=== PATIENT | male | born 1935 | race Caucasian/White ===

== ENCOUNTER 2021-09-01 03:59 | Inpatient (IN) | payer MEDICARE, OTHER ==
[~2021-09-01] VITALS: Ht 170.2 cm; Wt 64.5 kg
[2021-09-01] MEDS ORDERED: 0.9% SODIUM CHLORIDE 10 ML SYRINGE IVP PRN (04:15)
[2021-09-01 04:35] LABS: BASOPHILS % (AUTO) 0.2 % (0.0-2.0); EOSINOPHILS % (AUTO) 0.6 % (1.0-6.0); HEMATOCRIT 33.7 % (41-53); HEMOGLOBIN 11.1 g/dL (13.5-17.5); LYMPHOCYTES # (AUTO) 0.3 K/uL (1.0-4.8); LYMPHOCYTES % (AUTO) 2.7 % (22.0-44.0); MEAN CORPUSCULAR HEMOGLOBIN 29.4 pg (26.0-34.0); MEAN CORPUSCULAR VOLUME 89 fL (80-100); MONOCYTES % (AUTO) 8.5 % (2.0-9.0); NEUTROPHILS # (AUTO) 10.4 K/uL (1.8-7.7); PLATELET COUNT (AUTO) 127 K/uL (150-450); RED BLOOD CELL COUNT(AUTO) 3.78 MIL/uL (4.50-5.90); RED CELL DISTRIBUTION WIDTH 15.3 % (11.5-14.5)
[2021-09-01 04:41] LABS: ANION GAP 9 mmol/L (8-16); CALCIUM, TOTAL 9.4 mg/dL (8.8-10.5); CARBON DIOXIDE 30 mmol/L (22-29); CHLORIDE 105 mmol/L (98-107); CREATININE 0.93 mg/dL (0.60-1.30); GLUCOSE,RANDOM 144 mg/dL (70-110); POTASSIUM 4.3 mmol/L (3.5-5.1); SODIUM SERUM 144 mmol/L (136-145); UREA NITROGEN, BLOOD 21 mg/dL (7-18)
[2021-09-01 04:42] LABS: GLOMERULAR FILTR. RATE CALC > 60 mL/min (>60)
[2021-09-01] MEDS ORDERED: TROS20TA3 PO (04:45)
[2021-09-01] MEDS ORDERED: LEVO100 PO (04:45)
[2021-09-01] MEDS ORDERED: FINA-27 PO (04:45)
[2021-09-01] MEDS ORDERED: ALBU8HFA IH (04:45)
[2021-09-01] MEDS ORDERED: ASPI-1450 PO (04:45)
[2021-09-01] MEDS ORDERED: ATOR40TA28 PO (04:45)
[2021-09-01] MEDS ORDERED: NITR0.3T12 SL (04:45)
[2021-09-01] MEDS ORDERED: MOME15CR4 TP (04:45)
[2021-09-01] MEDS ORDERED: DICL100G51 TP (04:45)
[2021-09-01] MEDS ORDERED: PANT-31 PO (04:45)
[2021-09-01] MEDS ORDERED: ACET-2247 PO (04:45)
[2021-09-01] MEDS ORDERED: CLOB60CR12 TP (04:45)
[2021-09-01] MEDS ORDERED: IBUP200C5 PO (04:45)
[2021-09-01] MEDS ORDERED: FLUT16H NASAL (04:45)
[2021-09-01] MEDS ORDERED: TIOT185 IH (04:45)
[2021-09-01 04:48] LABS: ALANINE AMINOTRANSFERASE 67 U/L (12-78); ALBUMIN 2.8 g/dL (3.4-5.0); ALKALINE PHOSPHATASE 239 U/L (46-116); ASPARTATE AMINOTRANSFERASE 55 U/L (15-37); BILIRUBIN,TOTAL 1.5 mg/dL (0.1-1.0); CREATINE KINASE, TOTAL ONLY 51 U/L (39-308); D-DIMER 1.82 mg/L FEU (0.00-0.50); PROTHROMBIN TIME 10.3 SEC (9.4-11.6); TOTAL PROTEIN, SERUM 7.1 g/dL (6.4-8.2)
[2021-09-01 04:50] LABS: LACTIC ACID 1.1 mmol/L (0.4-2.0)
[2021-09-01 04:56] LABS: ABG BASE EXCESS -0.7 mmol/L (-2.0-3.0); ABG CARBOXYHEMOGLOBIN 0.5 % (0.0-1.5); ABG HCO3 23.7 mmol/L (22.0-26.0); ABG METHEMOGLOBIN 0.4 % (0.0-1.5); ABG OXYGEN CONTENT 16.6 mL/dL (15.0-23.0); ABG OXYHEMOGLOBIN 98.1 % (94.0-100.0); ABG PCO2 50 mmHg (35-45); ABG PH 7.325 (7.35-7.450); ABG TOTAL HEMOGLOBIN 11.8 G/dL (12.0-18.0); PO2, ARTERIAL BG 182.4 mmHg (71.0-79.0); SITE, BLOOD GAS LFT RADIAL; SOURCE, BLOOD GAS ARTERIAL; TEMPERATURE, FAHRENHEIT, BG 101.5 FAHREN (96.0-98.6)
[2021-09-01 04:57] LABS: O2 DEVICE,BLOOD GAS NRB (ROOM AIR)
[2021-09-01 04:59] LABS: B-TYPE NATRIURETIC PEPTIDE 100 pg/mL (0-100)
[2021-09-01] MEDS ORDERED: ASPIRIN 81 MG CHEWABLE TABLET PO ONE (05:00)
[2021-09-01] MEDS ORDERED: NITROGLYCERIN 0.4 MG SUBLINGUAL TABLET #25 SL ONE (05:00)
[2021-09-01] MEDS ORDERED: ACETAMINOPHEN 1000 MG/ISO-OSM 100 ML IV ONE (05:00)
[2021-09-01 05:04] LABS: COVID AG,FIA SOURCE NASAL SWAB
[2021-09-01] MEDS ORDERED: SODIUM CHLORIDE 0.9% 1,950 ML IV ONE (05:15)
[2021-09-01] MEDS ORDERED: CefTRIAXone 1 GM/DEXTROSE 50 ML IV ONE (05:15)
[2021-09-01] MEDS ORDERED: AZITHROMYCIN 500 MG/NS 250 ML IV ONE (05:15)
[2021-09-01 05:22] LABS: APPEARANCE,URINE CLEAR (CLEAR); BILIRUBIN,URINE NEGATIVE (NEGATIVE); GLUCOSE, URINE (UA) NEGATIVE (NEGATIVE); KETONES,URINE NEGATIVE (NEGATIVE); LEUKOCYTE ESTERASE ,URINE TRACE (NEGATIVE); NITRATE,URINE NEGATIVE (NEGATIVE); OCCULT BLOOD,URINE TRACE (NEGATIVE); PROTEIN,URINE 30-70 mg/dL (NEGATIVE); SPECIFIC GRAVITIY, URINE 1.028 (1.003-1.030)
[2021-09-01 05:32] LABS: BACTERIA,URINE Few /HPF (None Seen); RBC,URINE 0-2 /HPF (0-2)
[2021-09-01 05:33] LABS: HYALINE CASTS, URINE 0-2 /LPF (None Seen); MUCUS,URINE Few LPF (None Seen); SQUAMOUS EPITHELIAL CELL,UR Rare /LPF (None Seen)
[2021-09-01 05:36] LABS: INFLUENZA TYPE A NEGATIVE FOR TYPE A (NEGATIVE)
[2021-09-01 05:41] LABS: INFLUENZA TYPE B POSITIVE FOR TYPE B (NEGATIVE)
[2021-09-01] MEDS ORDERED: OSELTAMIVIR PHOSPHATE 30 MG CAPSULE PO ONE (06:20)
[2021-09-01] MEDS ORDERED: ALBUTEROL SULFATE HFA 90 MCG/PUFF 8 GM INHALER IH PRN (06:30)
[2021-09-01] MEDS ORDERED: NITROGLYCERIN 0.3 MG SUBLINGUAL TABLET #100 SL PRN (06:30)
[2021-09-01] MEDS ORDERED: ONDANSETRON HCL 4 MG/2 ML VIAL IVP PRN (06:30)
[2021-09-01] MEDS ORDERED: ACETAMINOPHEN 325 MG TABLET PO PRN (06:30)
[2021-09-01] MEDS ORDERED: ACETAMINOPHEN 650 MG/20.3 ML SOLUTION UDCUP PO PRN (06:30)
[2021-09-01] MEDS ORDERED: IPRATROPIUM BROMIDE 0.5 MG/2.5 ML NEB SOLUTION NEB PRN (06:30)
[2021-09-01] MEDS ORDERED: ALBUTEROL SULFATE 2.5 MG/0.5 ML NEB SOLUTION NEB PRN (06:30)
[2021-09-01] MEDS: LEVOTHYROXINE SODIUM 100 MCG TABLET PO SCH (06:44)
[2021-09-01] MEDS ORDERED: VANCOMYCIN HCL 1.25 GM in DEXTROSE 5%-WATER 250 ML IV ONE (06:45)
[2021-09-01] MEDS ORDERED: IOHEXOL 350 MG/ML 100 ML VIAL ONE (07:53)
[2021-09-01] MEDS ORDERED: SODIUM CHLORIDE 0.9% 100 ML ONE (07:53)
[2021-09-01] MEDS ORDERED: [UNRECOGNIZED DRUG - OTHER] PO SCH (09:00)
[2021-09-01] MEDS ORDERED: MOMETASONE FUROATE 0.1% TP SCH (09:00)
[2021-09-01] MEDS ORDERED: FINASTERIDE 5 MG TABLET PO SCH (09:00)
[2021-09-01] MEDS: CefTAZidime PENTAHYDRATE 1 GM in DEXTROSE 5%-WATER 50 ML IV SCH ×2 (09:22→18:58)
[2021-09-01] MEDS: MethylPREDNISolone SOD SUCC 40 MG/ML VIAL IVP SCH (09:37)
[2021-09-01] MEDS: ASPIRIN 81 MG CHEWABLE TABLET PO SCH (09:38)
[2021-09-01] MEDS: ATORVASTATIN CALCIUM 40 MG TABLET PO SCH (09:38)
[2021-09-01] MEDS: PANTOPRAZOLE SODIUM 40 MG DR TABLET PO SCH (09:39)
[2021-09-01] MEDS: HEPARIN SODIUM,PORCINE 5,000 UNITS/ML VIAL SQ SCH ×2 (09:55→16:00)
[2021-09-01] MEDS ORDERED: CLOB15CR10 TP (11:05)
[2021-09-01] MEDS ORDERED: FLUT1BLS9 IH (11:10)
[2021-09-01] MEDS ORDERED: ASPI-1444 PO (11:10)
[2021-09-01] MEDS ORDERED: TROS60CA3 PO (11:10)
[2021-09-01] MEDS ORDERED: NIZO2SH TP (11:10)
[2021-09-01] MEDS ORDERED: CETI10TA58 PO (11:10)
[2021-09-01] MEDS ORDERED: [UNRECOGNIZED DRUG - CODE] TP (11:10)
[2021-09-01 17:25] VITALS: BP 109/73
[2021-09-01] MEDS ORDERED: SODIUM CHLORIDE 0.9% 250 ML IV ONE (19:06)
[2021-09-01 19:11] VITALS: BP 111/62
[2021-09-01] MEDS: OSELTAMIVIR PHOSPHATE 30 MG CAPSULE PO SCH (21:31)
[2021-09-01] MEDS: VANCOMYCIN HCL 500 MG in DEXTROSE 5%-WATER 100 ML IV SCH (21:31)
[2021-09-01] MEDS: CLOBETASOL 0.05% 15 GM CREAM TP SCH (21:31)
[2021-09-01 23:18] VITALS: BP 105/56
[2021-09-02] MEDS: HEPARIN SODIUM,PORCINE 5,000 UNITS/ML VIAL SQ SCH ×3 (00:01→17:01)
[2021-09-02] MEDS: CefTAZidime PENTAHYDRATE 1 GM in DEXTROSE 5%-WATER 50 ML IV SCH ×3 (00:02→17:05)
[2021-09-02 03:54] VITALS: BP 110/58
[2021-09-02] MEDS: LEVOTHYROXINE SODIUM 100 MCG TABLET PO SCH (04:55)
[2021-09-02] MEDS: ACETAMINOPHEN 325 MG TABLET PO PRN (04:55)
[2021-09-02] MEDS ORDERED: CefTRIAXone 1 GM/DEXTROSE 50 ML IV SCH (05:00)
[2021-09-02 06:42] LABS: BASOPHILS % (AUTO) 0.1 % (0.0-2.0); EOSINOPHILS % (AUTO) 0 % (1.0-6.0); HEMATOCRIT 30.3 % (41-53); HEMOGLOBIN 10.4 g/dL (13.5-17.5); LYMPHOCYTES # (AUTO) 0.6 K/uL (1.0-4.8); LYMPHOCYTES % (AUTO) 5.3 % (22.0-44.0); MEAN CORPUSCULAR HEMOGLOBIN 30.2 pg (26.0-34.0); MEAN CORPUSCULAR HGB CONC 34.2 G/dL (31.0-37.0); MEAN CORPUSCULAR VOLUME 88 fL (80-100); MONOCYTES # (AUTO) 0.8 K/uL (0.1-1.0); MONOCYTES % (AUTO) 7.9 % (2.0-9.0); PLATELET COUNT (AUTO) 128 K/uL (150-450); RED BLOOD CELL COUNT(AUTO) 3.44 MIL/uL (4.50-5.90); RED CELL DISTRIBUTION WIDTH 15.6 % (11.5-14.5)
[2021-09-02 06:58] LABS: ANION GAP 5 mmol/L (8-16); CALCIUM, TOTAL 9.3 mg/dL (8.8-10.5); CARBON DIOXIDE 29 mmol/L (22-29); CHLORIDE 109 mmol/L (98-107); CREATININE 0.82 mg/dL (0.60-1.30); GLUCOSE,RANDOM 111 mg/dL (70-110); POTASSIUM 4.1 mmol/L (3.5-5.1); SODIUM SERUM 143 mmol/L (136-145); UREA NITROGEN, BLOOD 24 mg/dL (7-18)
[2021-09-02 07:07] LABS: GLOMERULAR FILTR. RATE CALC > 60 mL/min (>60)
[2021-09-02 07:19] LABS: NEUTROPHILS % (AUTO) 86.7 % (40.0-70.0)
[2021-09-02 07:44] VITALS: BP 113/66
[2021-09-02] MEDS ORDERED: [UNRECOGNIZED DRUG - OTHER] PO SCH (09:00)
[2021-09-02] MEDS: OSELTAMIVIR PHOSPHATE 30 MG CAPSULE PO SCH ×2 (09:14→20:34)
[2021-09-02] MEDS: PANTOPRAZOLE SODIUM 40 MG DR TABLET PO SCH (09:15)
[2021-09-02] MEDS: ATORVASTATIN CALCIUM 40 MG TABLET PO SCH (09:15)
[2021-09-02] MEDS: FINASTERIDE 5 MG TABLET PO SCH (09:15)
[2021-09-02] MEDS: ASPIRIN 81 MG CHEWABLE TABLET PO SCH (09:15)
[2021-09-02] MEDS: MethylPREDNISolone SOD SUCC 40 MG/ML VIAL IVP SCH ×2 (09:16→20:35)
[2021-09-02] MEDS: FLUTICASONE PROPIONATE 50 MCG/SPRAY 16 GM NASAL SPRAY NASAL SCH ×2 (09:16→09:27)
[2021-09-02] MEDS: VANCOMYCIN HCL 500 MG in DEXTROSE 5%-WATER 100 ML IV SCH ×2 (09:17→20:34)
[2021-09-02] MEDS: TIOTROPIUM BROMIDE 18 MCG/INH HANDIHALER [5] IH SCH (09:17)
[2021-09-02] MEDS: DICLOFENAC SODIUM 1% 100 GM GEL [2GM] TP SCH (09:17)
[2021-09-02] MEDS: CLOBETASOL 0.05% 15 GM CREAM TP SCH ×2 (09:17→20:34)
[2021-09-02 10:43] VITALS: BP 120/82
[2021-09-02 14:49] VITALS: BP 136/68
[2021-09-02 21:02] VITALS: BP 141/65
[2021-09-03] VITALS (7 sets, daily range): BP systolic 129–160; BP diastolic 58–86
[2021-09-03] MEDS: CefTAZidime PENTAHYDRATE 1 GM in DEXTROSE 5%-WATER 50 ML IV SCH ×3 (00:57→17:35)
[2021-09-03] MEDS: HEPARIN SODIUM,PORCINE 5,000 UNITS/ML VIAL SQ SCH ×3 (00:57→17:35)
[2021-09-03] MEDS: ACETAMINOPHEN 325 MG TABLET PO PRN (05:44)
[2021-09-03] MEDS: LEVOTHYROXINE SODIUM 100 MCG TABLET PO SCH (05:44)
[2021-09-03 07:51] LABS: VANCOMYCIN,RANDOM 9.7 mcg/mL (25.0-50.0)
[2021-09-03] MEDS: ASPIRIN 81 MG CHEWABLE TABLET PO SCH (08:34)
[2021-09-03] MEDS: VANCOMYCIN HCL 500 MG in DEXTROSE 5%-WATER 100 ML IV SCH (08:34)
[2021-09-03] MEDS: TIOTROPIUM BROMIDE 18 MCG/INH HANDIHALER [5] IH SCH (08:34)
[2021-09-03] MEDS: MethylPREDNISolone SOD SUCC 40 MG/ML VIAL IVP SCH ×2 (08:35→20:54)
[2021-09-03] MEDS: PANTOPRAZOLE SODIUM 40 MG DR TABLET PO SCH (08:40)
[2021-09-03] MEDS: FINASTERIDE 5 MG TABLET PO SCH (08:40)
[2021-09-03] MEDS: FLUTICASONE PROPIONATE 50 MCG/SPRAY 16 GM NASAL SPRAY NASAL SCH (08:40)
[2021-09-03] MEDS: OSELTAMIVIR PHOSPHATE 30 MG CAPSULE PO SCH ×2 (08:41→20:54)
[2021-09-03] MEDS: DICLOFENAC SODIUM 1% 100 GM GEL [2GM] TP SCH (08:42)
[2021-09-03] MEDS: CLOBETASOL 0.05% 15 GM CREAM TP SCH ×2 (08:48→20:57)
[2021-09-03] MEDS: ATORVASTATIN CALCIUM 40 MG TABLET PO SCH (09:04)
[2021-09-03 10:48] LABS: ANION GAP 10 mmol/L (8-16); CALCIUM, TOTAL 9.3 mg/dL (8.8-10.5); CARBON DIOXIDE 28 mmol/L (22-29); CHLORIDE 105 mmol/L (98-107); CREATININE 0.87 mg/dL (0.60-1.30); GLUCOSE,RANDOM 133 mg/dL (70-110); POTASSIUM 4.3 mmol/L (3.5-5.1); SODIUM SERUM 143 mmol/L (136-145); UREA NITROGEN, BLOOD 26 mg/dL (7-18)
[2021-09-03 10:49] LABS: GLOMERULAR FILTR. RATE CALC > 60 mL/min (>60)
[2021-09-03] MEDS ORDERED: BUDESONIDE 0.5 MG/2 ML NEB SOLUTION NEB SCH (11:30)
[2021-09-03] MEDS: VANCOMYCIN 1GM/WATER(PEG/NADA) 200 ML IV SCH (20:57)
[2021-09-04] MEDS: HEPARIN SODIUM,PORCINE 5,000 UNITS/ML VIAL SQ SCH ×2 (00:59→08:26)
[2021-09-04] MEDS: CefTAZidime PENTAHYDRATE 1 GM in DEXTROSE 5%-WATER 50 ML IV SCH ×2 (00:59→08:26)
[2021-09-04] MEDS: ACETAMINOPHEN 325 MG TABLET PO PRN (04:13)
[2021-09-04 05:40] VITALS: BP 137/84
[2021-09-04] MEDS: LEVOTHYROXINE SODIUM 100 MCG TABLET PO SCH (06:29)
[2021-09-04 07:34] LABS: BASOPHILS % (AUTO) 0.1 % (0.0-2.0); EOSINOPHILS % (AUTO) 0 % (1.0-6.0); HEMATOCRIT 32.6 % (41-53); HEMOGLOBIN 10.9 g/dL (13.5-17.5); LYMPHOCYTES # (AUTO) 0.5 K/uL (1.0-4.8); LYMPHOCYTES % (AUTO) 4.3 % (22.0-44.0); MEAN CORPUSCULAR HEMOGLOBIN 29.4 pg (26.0-34.0); MEAN CORPUSCULAR HGB CONC 33.5 G/dL (31.0-37.0); MEAN CORPUSCULAR VOLUME 88 fL (80-100); MONOCYTES # (AUTO) 0.5 K/uL (0.1-1.0); MONOCYTES % (AUTO) 3.9 % (2.0-9.0); NEUTROPHILS # (AUTO) 10.6 K/uL (1.8-7.7); PLATELET COUNT (AUTO) 158 K/uL (150-450); RED BLOOD CELL COUNT(AUTO) 3.72 MIL/uL (4.50-5.90); RED CELL DISTRIBUTION WIDTH 15.2 % (11.5-14.5)
[2021-09-04 07:37] LABS: NEUTROPHILS % (AUTO) 91.7 % (40.0-70.0)
[2021-09-04 07:47] LABS: CALCIUM, TOTAL 9.4 mg/dL (8.8-10.5); CARBON DIOXIDE 33 mmol/L (22-29); CREATININE 0.83 mg/dL (0.60-1.30); GLUCOSE,RANDOM 143 mg/dL (70-110); UREA NITROGEN, BLOOD 24 mg/dL (7-18)
[2021-09-04 07:51] LABS: ANION GAP 2 mmol/L (8-16); CHLORIDE 105 mmol/L (98-107); GLOMERULAR FILTR. RATE CALC > 60 mL/min (>60); POTASSIUM 4.9 mmol/L (3.5-5.1); SODIUM SERUM 140 mmol/L (136-145)
[2021-09-04 08:23] VITALS: BP 140/89
[2021-09-04] MEDS: TIOTROPIUM BROMIDE 18 MCG/INH HANDIHALER [5] IH SCH (08:26)
[2021-09-04] MEDS: ASPIRIN 81 MG CHEWABLE TABLET PO SCH (08:26)
[2021-09-04] MEDS: FLUTICASONE PROPIONATE 50 MCG/SPRAY 16 GM NASAL SPRAY NASAL SCH (08:26)
[2021-09-04] MEDS: ATORVASTATIN CALCIUM 40 MG TABLET PO SCH (08:27)
[2021-09-04] MEDS: OSELTAMIVIR PHOSPHATE 30 MG CAPSULE PO SCH ×2 (08:27→14:33)
[2021-09-04] MEDS: FINASTERIDE 5 MG TABLET PO SCH (08:27)
[2021-09-04] MEDS: PANTOPRAZOLE SODIUM 40 MG DR TABLET PO SCH (08:27)
[2021-09-04] MEDS: DICLOFENAC SODIUM 1% 100 GM GEL [2GM] TP SCH (08:28)
[2021-09-04] MEDS: CLOBETASOL 0.05% 15 GM CREAM TP SCH (08:28)
[2021-09-04] MEDS: MethylPREDNISolone SOD SUCC 40 MG/ML VIAL IVP SCH (08:31)
[2021-09-04] MEDS: VANCOMYCIN 1GM/WATER(PEG/NADA) 200 ML IV SCH (09:10)
[2021-09-04] MEDS ORDERED: LEVO750T68 PO (12:17)
[2021-09-04] MEDS ORDERED: OSEL30CA PO (12:17)
[2021-09-04] MEDS ORDERED: FLUT1BLS9 IH (12:17)
[2021-09-04 12:19] VITALS: BP 127/86
[2021-09-04] MEDS ORDERED: OSELTAMIVIR PHOSPHATE 30 MG CAPSULE PO ONE (14:30)
== END 2021-09-04 15:05 | disposition home or self-care (01) | DRG 871 ==
LOC: EMS 04:01 → 5S 06:27
PROVIDERS: ADMIT Internal Medicine; ATTEND Internal Medicine
DX: A41.9 Sepsis, unspecified organism (principal); J96.21 Acute and chronic respiratory failure with hypoxia; J10.00 Influenza due to other identified influenza virus with unspecified type of pneumonia; E44.0 Moderate protein-calorie malnutrition; E87.2 Acidosis; E87.3 Alkalosis; E78.00 Pure hypercholesterolemia, unspecified; E78.5 Hyperlipidemia, unspecified; Z20.822 Contact with and (suspected) exposure to COVID-19; G20 Parkinson's disease; I25.10 Atherosclerotic heart disease of native coronary artery without angina pectoris; I73.9 Peripheral vascular disease, unspecified; J43.9 Emphysema, unspecified; N40.0 Benign prostatic hyperplasia without lower urinary tract symptoms; D69.6 Thrombocytopenia, unspecified; I11.9 Hypertensive heart disease without heart failure; R29.810 Facial weakness; Z79.82 Long term (current) use of aspirin; Z86.73 Personal history of transient ischemic attack (TIA), and cerebral infarction without residual deficits; Z86.79 Personal history of other diseases of the circulatory system; Z98.61 Coronary angioplasty status; Z79.899 Other long term (current) drug therapy; Z99.81 Dependence on supplemental oxygen; Z68.22 Body mass index [BMI] 22.0-22.9, adult
CPT/HCPCS: 36600; 71045; 71275; 76700; 80048; 80053; 80202; 81001; 82550; 82805; 83605; 83735; 83880; 84145; 84484; 85025; 85379; 85610; 85730; 87040; 87070; 87081; 87086; 87449; 87804; 93005; 99291; J0131; J0456; J0696; J0713; J1644; J2920; J3370; J7030; J7050; J7060; Q9967; 36415-L1; 36415-TC; U0003